=== PATIENT | female | born 1975 | race Caucasian/White ===

== ENCOUNTER 2016-12-26 12:46 | Emergency (ER) | payer MEDICARE, OTHER, SELFPAY ==
[~2016-12-26] VITALS: Ht 160 cm; Wt 69.2 kg
[2016-12-26 12:57] VITALS: BP 137/94
== END 2016-12-26 13:47 | disposition home or self-care (01) ==
LOC: ED 13:41
DX: G89.29 Other chronic pain (principal); M54.6 Pain in thoracic spine; Z76.0 Encounter for issue of repeat prescription
CPT/HCPCS: 99283

== ENCOUNTER 2018-11-07 19:26 | Emergency (ER) | payer SELFPAY ==
[~2018-11-07] VITALS: Ht 157.5 cm; Wt 72.5 kg
[2018-11-07 19:27] VITALS: BP 139/63
== END 2018-11-07 20:34 | disposition home or self-care (01) ==
LOC: ED 19:56
DX: G89.29 Other chronic pain (principal); M25.511 Pain in right shoulder
CPT/HCPCS: 73030; 96372; 99283; J1885